=== PATIENT | male | born 1960 | race Caucasian/White ===

== ENCOUNTER 2020-08-23 10:18 | Emergency (ER) | payer BC, MEDICAID ==
[~2020-08-23] VITALS: Ht 170.2 cm; Wt 70.3 kg
--- NOTE | 2020-08-23 10:47 | NUR ---
Pt c/o sore throat, 04/16, with difficulty swallowing, ESCAMILLA w/dizziness, and body aches x 1 day. Pt denies CP, SOB, n/v, no distress noted.
--- NOTE | 2020-08-23 13:26 | NUR ---
Gave pt RX and d/c instructions, pt verbalized understanding.
[2020-08-23 13:48] VITALS: BP 117/68
== END 2020-08-23 13:51 | disposition home or self-care (01) ==
LOC: ER 10:18
DX: J06.9 Acute upper respiratory infection, unspecified (principal); Z20.828 Contact with and (suspected) exposure to other viral communicable diseases
CPT/HCPCS: 71045; 87400; A4663